=== PATIENT | female | born 1945 | race Caucasian/White ===

== ENCOUNTER 2019-02-27 05:01 | Day surgery (SDC) | payer MEDICARE ==
[2019-02-27] MEDS ORDERED: TROP 1%/CYCLOPEN 1%/PHENYL 2% DROPS OPHTH ONE (05:02)
[2019-02-27] MEDS ORDERED: TOBRAMYCIN SULF 0.3 % OPHT SOL 1 DROP OPHTH ONE (05:02)
[2019-02-27] MEDS ORDERED: MOXIFLOXACIN HCL (OPHTH) 1 DROP DROPS BOTH_EYES ONE (05:02)
[2019-02-27] MEDS ORDERED: PROPARACAINE 0.5% OPHTH SOL 15 ML BTTL ONE (06:17)
== END 2019-02-27 07:20 | disposition home or self-care (01) ==
LOC: AMB 05:01
PROVIDERS: ATTEND Ophthalmology
DX: H26.491 Other secondary cataract, right eye (principal); I10 Essential (primary) hypertension; Z79.899 Other long term (current) drug therapy

== ENCOUNTER 2019-03-13 05:30 | Day surgery (SDC) | payer MEDICARE, MEDICAID ==
[2019-03-13] MEDS ORDERED: TOBRAMYCIN SULF 0.3 % OPHT SOL 1 DROP OPHTH ONE (05:31)
[2019-03-13] MEDS ORDERED: PROPARACAINE 0.5% OPHTH SOL 15 ML BTTL ONE (05:47)
[2019-03-13] MEDS ORDERED: TROP 1%/CYCLOPEN 1%/PHENYL 2% DROPS ONE (05:48)
== END 2019-03-13 07:17 | disposition home or self-care (01) ==
LOC: AMB 05:30
PROVIDERS: ATTEND Ophthalmology
DX: H26.491 Other secondary cataract, right eye (principal)